=== PATIENT | female | born 1940 | race Caucasian/White ===

== ENCOUNTER 2018-02-23 05:56 | Inpatient (IN) | payer OTHER ==
[2018-02-13 15:32] VITALS: BMI 22.4
[2018-02-23] MEDS ORDERED: CEFAZOLIN 2 GM/D5W 2 GM/50 ML ML IVPB ONE (06:14)
[2018-02-23] MEDS ORDERED: ROPIVICAINE 0.2%/MORPH PF/KETOROLAC - 51ML DISP.SYRINGE IA ONE ×2 (06:14→08:02)
[2018-02-23] MEDS ORDERED: TRANEXAMIC ACID 1000 MG/10 ML VIAL IVPUSH ONE (06:14)
[2018-02-23] MEDS ORDERED: PANTOPRAZOLE 40 MG TABLET (FP) ONE (06:30)
[2018-02-23] MEDS ORDERED: GABAPENTIN 300 MG CAPSULE (FP) ONE (06:31)
[2018-02-23] MEDS ORDERED: oxyCODONE HCL 10 MG SUSTAINED ACTING TABLET ONE (06:31)
[2018-02-23] MEDS: GABAPENTIN 300 MG CAPSULE (FP) PO ONE ×2 (07:10→13:25)
[2018-02-23] MEDS: oxyCODONE HCL 10 MG SUSTAINED ACTING TABLET PO ONE ×2 (07:10→13:26)
[2018-02-23] MEDS: PANTOPRAZOLE 40 MG TABLET (FP) PO ONE ×2 (07:10→13:26)
--- NOTE | 2018-02-23 07:14 | HP ---
Admitting History and Physical - Admission Chief Complaint: left hip osteoarthritis x years History of Present Illness: 77-year-old female presenting in regard to her left hip. Long-standing history of left hip osteoarthritis. Patient complains of pain, limited range of motion, difficulty ambulating, and difficulty with activities of daily living. Patient has failed conservative treatment measures including PO medications, activity modification, injections, and exercise programs. At this point, patient would like to proceed with surgical intervention-left total hip arthroplasty MAKOplasty. History Source: Patient - Past Medical History Cardiovascular: Yes: HTN Psych: Yes: Depression Musculoskeletal: Yes: Osteoarthritis ENT: Yes: Allergic Rhinitis - Past Surgical History Additional Past Surgical History: See written history & physical. - Advance Directives Advance Directives: Yes: Health Care Proxy - Smoking History Smoking history: Former smoker Have you smoked in the past 12 months: No If you are a former smoker, when did you quit?: 30 YEARS AGO - Alcohol/Substance Use Hx Alcohol Use: Yes (FEW TIMES PER WEEK) Home Medications - Allergies Allergies/Adverse Reactions: Allergies Allergy/AdvReac Type Severity Reaction Status Date / Time copper Allergy Severe Rash Verified 02/13/18 15:13 phenytoin [From Dilantin] Allergy Severe Hives Verified 02/13/18 15:13 Sulfa (Sulfonamide Allergy Severe Hives Verified 02/13/18 15:13 Antibiotics) BASE METALS AdvReac Severe Rash Uncoded 02/13/18 15:13 - Home Medications Home Medications: Ambulatory Orders Ca/D3/Mag Ox/Zinc/Histology Specialist/Emil/Bor [Calcium 600+D3 Plus Caplet] 1 each PO DAILY 12/22 Cyclosporine [Restasis] 1 each OU BID 02/13/18 Enalapril Maleate 5 mg PO BID 02/13/18 Fluoxetine HCl [Prozac] 40 mg PO DAILY 02/13/18 Fluticasone Prop 0.05% Nasal [Flonase -] 1 - 2 spray NS BID 02/13/18 L.acidoph,Paracasei, B.lactis [Probiotic] 1 each PO DAILY 02/13/18 Meloxicam 15 mg PO DAILY 02/13/18 Pantothenic Acid (Vit B5) [Pantothenic Acid] 500 mg PO DAILY 02/13/18 Polyethylene Glycol 3350 [Miralax (For Daily Use) -] 17 gm PO HS 02/13/18 Simvastatin 40 mg PO HS 02/13/18 Valacyclovir HCl [Valtrex] 500 mg PO BID PRN 02/13/18 Review of Systems - Review of Systems Musculoskeletal: reports: Decreased ROM (left hip), Joint Pain (left hip) Physical Examination Vital Signs: Vital Signs Temperature 97.6 F 02/23/18 07:00 Pulse Rate 59 L 02/23/18 07:00 Respiratory Rate 16 02/23/18 07:00 Blood Pressure 129/78 02/23/18 07:00 O2 Sat by Pulse Oximetry (%) Constitutional: Yes: Well Nourished, No Distress Eyes: Yes: Conjunctiva Clear HENT: Yes: Atraumatic, Normocephalic Neck: Yes: Supple Cardiovascular: Yes: Regular Rate and Rhythm Respiratory: Yes: Regular Gastrointestinal: Yes: Soft ...Rectal Exam: Yes: Deferred Musculoskeletal: Yes: Joint Stiffness (left hip), Joint Swelling (left hip) Assessment/Plan 77-year-old female presenting in regard to her left hip. Long-standing history of left hip osteoarthritis. Patient complains of pain, limited range of motion, difficulty ambulating, and difficulty with activities of daily living. Patient has failed conservative treatment measures including PO medications, activity modification, injections, and exercise programs. At this point, patient would like to proceed with surgical intervention-left total hip arthroplasty MAKOplasty. Pros, cons, wrists, that if it is, and alternatives of a left total hip arthroplasty he were discussed with the patient at length. Patient confirms your understanding, and can sense your proceed with a left total hip arthroplasty MAKLplasty.
[2018-02-23] MEDS ORDERED: ceFAZolin SODIUM 1 GM VIAL ONE ×2 (07:22→08:14)
[2018-02-23] MEDS ORDERED: MIDAZOLAM HCL 2 MG/2 ML SINGLE DOSE VIAL ONE ×2 (07:22)
[2018-02-23] MEDS ORDERED: TRANEXAMIC ACID 1000 MG/10 ML VIAL ONE (07:22)
[2018-02-23] MEDS ORDERED: DEXAMETHASONE SOD PHOSPHATE 4 MG/1 ML VIAL ONE (07:22)
[2018-02-23] MEDS ORDERED: BUPIVACAINE HCL/PF 0.5% (5MG/ML) 10 ML VIAL ONE (07:29)
[2018-02-23] MEDS ORDERED: LIDOCAINE 1% P/F 10 MG/ML VIAL ONE (07:32)
[2018-02-23] MEDS ORDERED: DEXAMETHASONE SOD PHOSPHATE/PF 10 MG/ML SDV ONE (07:45)
[2018-02-23] MEDS ORDERED: PROPOFOL 20 ML ONE (08:35)
[2018-02-23] MEDS ORDERED: ONDANSETRON 4 MG/2 ML VIAL ONE (08:45)
[2018-02-23] MEDS ORDERED: ePHEDrine SULFATE 50 MG/1 ML AMPULE ONE (09:02)
[2018-02-23] MEDS ORDERED: ONDANSETRON 4 MG/2 ML VIAL IVPUSH PRN ×2 (10:25→11:27)
[2018-02-23] MEDS ORDERED: oxyCODONE HCL 5 MG TABLET PO PRN ×3 (10:25)
[2018-02-23] MEDS ORDERED: ACETAMINOPHEN 1000 MG/100 ML VIAL (NON FORMULARY) IVPB ONE ×2 (11:22→11:45)
[2018-02-23] MEDS ORDERED: valACYclovir HCL 500 MG TABLET (FP) PO PRN (11:23)
[2018-02-23] MEDS ORDERED: MAG HYDROX/AL HYDROX/SIMETH 30 ML UNIT-DOSE CUP PO PRN (11:27)
[2018-02-23] MEDS ORDERED: MAGNESIUM HYDROX 2400MG/30ML ORAL SUSPENSION 30 ML CUP PO PRN (11:27)
[2018-02-23] MEDS ORDERED: LACTATED RINGERS SOLUTION 1,000 ML IV SCH (11:30)
--- NOTE | 2018-02-23 11:34 | OP ---
Operative Note - Note: Operative Date: 02/23/18 Pre-Operative Diagnosis: Left hip OA Operation: Left ESTEPHANIA NATTY Post-Operative Diagnosis: Same as Pre-op Surgeon: Parker Cabral Palliative Care Specialist: Jody Johns Anesthesia: Spinal Estimated Blood Loss (mls): 200
[2018-02-23] MEDS ORDERED: KETOROLAC TROMETHAMINE 15 MG/ML VIAL IVPUSH ONE (11:40)
[2018-02-23] MEDS ORDERED: traMADol HCL 50 MG TABLET PO ONE (12:00)
--- NOTE | 2018-02-23 12:15 | SPEC ---
DATE OF OPERATION: 02/23/2018 PREOPERATIVE DIAGNOSIS: Left hip osteoarthritis. POSTOPERATIVE DIAGNOSIS: Left hip osteoarthritis. PROCEDURE: Left total hip replacement with MAKOplasty robotic navigation. ATTENDING: Parker Cabral MD CUSTOMER SUPPORT EXECUTIVE: KINGA Mcdowell ANESTHESIA: Spinal plus sedation. ESTIMATED BLOOD LOSS: 200 mL. COMPLICATIONS: None. DISPOSITION: The patient was transferred to the PACU in stable condition. IMPLANTS USED: [place] Fontaine Accolade II size 7 femoral component, Abby Tritanium 56-mm acetabular component with 30- and 25-mm acetabular screws, MDM bipolar head ball and liner. INDICATIONS: This is a 77-year-old female who presented to the office complaining of severe left hip pain. She was seen and examined by Dr. Cabral and diagnosed with severe left hip osteoarthritis. The patient was initially managed nonoperatively with injections, medications and physical therapy but continued to have severe pain and ambulatory dysfunction. She was therefore indicated for a left total hip replacement. The risks, benefits and alternatives to the procedure were explained to the patient in great detail and she elected to proceed with surgery. On the day of surgery the patient was taken to the operating room and placed on the OR table. Spinal anesthesia was administered by the anesthesiologist. The patient was then positioned in the lateral decubitus position on the table and all bony prominences were padded. An axillary roll was placed. The operative hip was then prepped and draped in the usual sterile fashion and intravenous antibiotics were given for infection prophylaxis. A surgical timeout was then performed with the team, and the patients identity, procedure, side, availability of implants, and the administration of antibiotics were confirmed. An approximately 15-cm longitudinal incision was made through the skin centered on the greater trochanter of the hip. This dissection was carried down through the subcutaneous tissues to the deep fascia. This fascia was then incised and a Cobra was placed around the inferior femoral neck. Electrocautery was used to reflect the anterior 40% of the gluteus medius and minimus starting at the musculotendinous junction and leaving a cuff for closure. This was reflected to reveal the capsule of the hip joint. An anterior capsulectomy was performed and the femoral head and neck were visualized. Grade 4 changes were noted diffusely throughout the joint. At this point, 3 small stab incisions were made superior to the main incision along the iliac crest. Three self-drilling Steinmann pins were then placed and the ESTEPHANIA pelvic array was attached. Reference points on the limb were then entered into the robotic device and the limb length deficiency, offset, and femoral neck resection level were then calculated by the software. The hip was then dislocated with traction and external rotation. An oscillating saw was used to make the femoral neck cut at the level previously templated, and the femoral head was removed. Attention was then turned to the acetabulum. Retractors were then placed around the acetabulum and the labrum was removed. An acetabular checkpoint pin and the [employer] software were used to register the contours of the acetabulum. The acetabulum was then reamed in a single stage to the preoperatively templated size using the [employer] robotic arm. The appropriately sized cup was then impacted and had solid fixation as well as the preset inclination and version of 40 and 20 degrees, respectively. A polyethylene liner was then placed in the cup. Attention was then turned back to the femur, which was externally rotated for improved visualization. A femoral neck elevator was used to present the femoral neck cut, a box osteotome was used to enter the femoral canal, and a canal finder was used to go down the femoral shaft. The ESTEPHANIA broaches were used sequentially until the optimal scratch fit was achieved. This correlated with the preoperatively templated size. From here, several different offset head and neck configurations were tested until excellent stability and length were obtained. These measurements were quantified using the [employer] software. All trial components were then removed, the femur was copiously irrigated, and the final components were placed. Leg length and stability were checked again and found to be excellent. Irrigation was performed again. Wound closure was started by repairing the abductor muscles with a No. 2 FiberWire stitch in a Krackow configuration passed through bone tunnels in the greater trochanter and tied over a bony bridge. This repair was then reinforced with a 0 V-Loc 180 barbed suture. Next, no. 1 Polysorb and 0 V-Loc 180 were used to close the fascia. The deep subcutaneous tissue was closed with No. 1 Polysorb sutures, and 2-0 Polysorb was used for the superficial subcutaneous tissue. The skin was closed using both 3-0 V-Loc 90 suture in a running subcuticular fashion and SwiftSet skin adhesive. The ESTEPHANIA array and pins were removed from the iliac crest and the stab incision sites were irrigated and closed with 4-0 Polysorb sutures and SwiftSet skin adhesive. Once this was completed, a sterile dressing was applied. The patient was then awakened and taken to the PACU in stable condition. ADDENDUM: After final implants were placed a 3-minute dilute Betadine lavage was performed. Following this the wound was again thoroughly irrigated with normal saline via pulsatile lavage and wound closure was begun. Anita [id number]
[2018-02-23] MEDS: KETOROLAC TROMETHAMINE 30 MG/1 ML VIAL IVPUSH SCH ×3 (13:27→23:44)
[2018-02-23] MEDS: traMADol HCL 50 MG TABLET PO SCH ×3 (13:27→23:43)
[2018-02-23] MEDS: LACTATED RINGERS SOLUTION 1,000 ML IV SCH (13:27)
[2018-02-23] MEDS: oxyCODONE HCL 5 MG TABLET PO PRN (16:41)
[2018-02-23] MEDS: ACETAMINOPHEN 325 MG TABLET (FP) PO SCH ×2 (17:43→23:43)
[2018-02-23] MEDS: CEFAZOLIN 2 GM/D5W 2 GM/50 ML ML IVPB SCH (17:43)
[2018-02-23] MEDS ORDERED: DEXAMETHASONE SOD PHOSPHATE 10 MG/1 ML VIAL IVPB ONE (20:00)
[2018-02-23] MEDS ORDERED: PT OWN MED DRAWER 7, Y5N ONE (21:10)
[2018-02-23] MEDS: ATORVASTATIN CA 20 MG TABLET (FP) PO SCH (21:13)
[2018-02-23] MEDS: FLUTICASONE PROP 0.05% 16 GM NASAL SPRAY NS SCH (21:13)
[2018-02-23] MEDS: ENALAPRIL MALEATE 5 MG TABLET (FP) PO SCH (21:13)
[2018-02-23] MEDS: SENNOSIDES/DOCUSATE COMBO (SENNA PLUS) TABLET (UD) PO SCH (21:13)
[2018-02-23] MEDS: ASCORBIC ACID 500 MG TABLET (FP) PO SCH (21:13)
[2018-02-23] MEDS: GABAPENTIN 300 MG CAPSULE (FP) PO SCH (21:14)
[2018-02-23] MEDS: oxyCODONE HCL 10 MG SUSTAINED ACTING TABLET PO SCH (21:14)
[2018-02-23] MEDS: POLYETHYLENE GLYCOL 3350 119 GM BTL PO SCH (21:14)
[2018-02-23] MEDS ORDERED: PATIENT'S OWN MEDICATION (NON-FORMULARY) (Cyclosporine [Restasis] 1 EACH) OU SCH (22:00)
[2018-02-24] MEDS: CEFAZOLIN 2 GM/D5W 2 GM/50 ML ML IVPB SCH (02:12)
[2018-02-24] MEDS: oxyCODONE HCL 5 MG TABLET PO PRN (02:12)
[2018-02-24] MEDS: ACETAMINOPHEN 325 MG TABLET (FP) PO SCH ×4 (06:24→23:51)
[2018-02-24] MEDS: KETOROLAC TROMETHAMINE 30 MG/1 ML VIAL IVPUSH SCH (06:25)
[2018-02-24] MEDS: traMADol HCL 50 MG TABLET PO SCH ×4 (06:25→23:52)
[2018-02-24] MEDS: ASPIRIN 325 MG TABLET PO SCH (08:00)
[2018-02-24 08:28] LABS: HEMATOCRIT 33.5 % (32.4-45.2); HEMOGLOBIN 10.5 GM/dl (10.7-15.3); MCHC 31.5 g/dl (32.0-36.0); MEAN CELL VOLUME 95.3 fl (80-96); MEAN PLT VOLUME 8.6 fl (7.5-11.1); PLATELET COUNT 210 K/MM3 (134-434); RBC 3.51 M/mm3 (3.60-5.2); RDW 12.5 % (11.6-15.6); WHITE BLOOD COUNT 11.8 K/mm3 (4.0-10.8)
[2018-02-24 08:36] LABS: ANION GAP 6 MMOL/L (8-16); BLOOD UREA NITROGEN 18 mg/dl (7-18); CALCIUM 8.6 mg/dl (8.4-10.2); CHLORIDE 103 mmol/L (98-107); CO2 27 mmol/L (22-28); CREATININE 0.7 mg/dl (0.6-1.3); GLUCOSE,RANDOM 149 mg/dl (74-106); POTASSIUM 4.3 mmol/L (3.5-5.1); SODIUM 136 mmol/L (136-145)
[2018-02-24] MEDS: MULTIVITAMINS (DAILY MVI) TABLET (FP) PO SCH (10:16)
[2018-02-24] MEDS: GABAPENTIN 300 MG CAPSULE (FP) PO SCH ×2 (10:17→21:40)
[2018-02-24] MEDS: SENNOSIDES/DOCUSATE COMBO (SENNA PLUS) TABLET (UD) PO SCH ×2 (10:18→23:52)
[2018-02-24] MEDS: ASCORBIC ACID 500 MG TABLET (FP) PO SCH ×2 (10:18→21:40)
[2018-02-24] MEDS: ENALAPRIL MALEATE 5 MG TABLET (FP) PO SCH ×2 (10:19→21:40)
[2018-02-24] MEDS: oxyCODONE HCL 10 MG SUSTAINED ACTING TABLET PO SCH ×2 (10:19→22:00)
[2018-02-24] MEDS: FLUoxetine HCL 20 MG CAPSULE (FP) PO SCH (10:19)
[2018-02-24] MEDS: PANTOPRAZOLE 40 MG TABLET (FP) PO SCH (10:19)
[2018-02-24] MEDS: FLUTICASONE PROP 0.05% 16 GM NASAL SPRAY NS SCH ×2 (10:20→21:39)
[2018-02-24] MEDS: LACTATED RINGERS SOLUTION 1,000 ML IV SCH (11:56)
--- NOTE | 2018-02-24 19:55 | PN ---
Progress Note (short form) - Note Progress Note: Pt seen and examined. Doing well. AVSS Selected Entries 02/24/18 18:00 Temperature 97.9 F Pulse Rate 67 Respiratory 17 Rate Blood Pressure 139/69 O2 Sat by Pulse 97 Oximetry (%) Oxygen Delivery Room Air Method Laboratory Tests 02/24/18 02/24/18 07:13 07:13 WBC 11.8 H Hgb 10.5 L Hct 33.5 Plt Count 210 Sodium 136 Potassium 4.3 Chloride 103 Carbon Dioxide 27 Anion Gap 6 L BUN 18 Creatinine 0.7 Creat Clearance w eGFR > 60 Random Glucose 149 H Calcium 8.6 Gen: NAD LLE: c/d/i, NVID A/P 77yo female POD#1 s/p L NATTY PT/OOB - WBAT LLE D/C home in AM after PT; f/u in office in 10-14 days.
--- NOTE | 2018-02-24 20:02 | DS ---
Physical Examination Vital Signs: Vital Signs Temperature 97.9 F 02/24/18 18:00 Pulse Rate 67 02/24/18 18:00 Respiratory Rate 17 02/24/18 18:00 Blood Pressure 139/69 02/24/18 18:00 O2 Sat by Pulse Oximetry (%) 97 02/24/18 18:00 Labs: CBC, BMP 02/24/18 07:13 02/24/18 07:13 Discharge Summary Reason For Visit: LEFT HIP OSTEOARTHRITIS Current Active Problems Osteoarthritis of left hip (Acute) Procedures: Principal: Left ESTEPHANIA NATTY Hospital Course: Admitted for elective surgery. Procedure performed without complications. Pt received postoperative antibiotic prophylaxis and DVT ppx. Ambulated with physical therapy. Stable for discharge home with outpatient followup. Condition: Stable - Instructions Diet, Activity, Other Instructions: Dr Cabral - Hip Replacement Instructions Keep the Aquacel dressing on until removed by Dr. Cabral in 10-14 days - it is antibacterial and waterproof and you can shower with it on. Call the office for a follow-up appointment with Dr. Cabral in 10-14 days. Take one Aspirin 325mg daily for 6 weeks to prevent blood clots in your legs. Take one Pantoprazole 40mg daily for 6 weeks to protect against heartburn and ulcers. Take Cephalexin (antibiotic) 3x/day for 10 days to help prevent skin infection. Resume taking Meloxicam 15mg daily to reduce swelling and inflammation. Take a multivitamin, stool softener and extra Vitamin C supplement daily. For pain: *Mild pain (1-3/10): Take 1 Tramadol tablet every 4 hours as needed. Moderate pain (4-6/10): Take 1 Tramadol tablet and 1 Percocet tablet every 4 hours as needed. Severe pain (7-10/10): Take 1 Tramadol tablet and 2 Percocet tablets every 4 hours as needed. Activity: You can put as much weight on the operative leg as you want. For the first 6 weeks, all you need to do is walk around the house, go up/down stairs, and sit down/get up. After 6 weeks when everything is healed (and bone has grown into the implant) you will be sent for more intensive outpatient physical therapy. Always use a walker or cane for balance and to prevent falls. Expect to see swelling / bruising from the operative site all the way down to your toes. Wear the Compression stocking on the operative side during the day to minimize how much swelling there is in your foot/ankle. Don't wear the stocking at night. You don't have to wear the stocking on the other side. Disposition: VNS/HOME HEALTH CARE - Home Medications Comprehensive Discharge Medication List: Ambulatory Orders Ca/D3/Mag Ox/Zinc/Substation Electrician Supervisor/Emil/Bor [Calcium 600-D3 Plus Caplet] 1 each PO DAILY 12/22 Cyclosporine [Restasis] 1 each OU BID 02/13/18 Enalapril Maleate 5 mg PO BID 02/13/18 Fluoxetine HCl [Prozac] 40 mg PO DAILY 02/13/18 Fluticasone Prop 0.05% Nasal [Flonase -] 1 - 2 spray NS BID 02/13/18 L.acidoph,Paracasei, B.lactis [Probiotic] 1 each PO DAILY 02/13/18 Meloxicam 15 mg PO DAILY 02/13/18 Pantothenic Acid (Vit B5) [Pantothenic Acid] 500 mg PO DAILY 02/13/18 Polyethylene Glycol 3350 [Miralax 119 gm Btl -] 17 gm PO HS 02/13/18 Simvastatin 40 mg PO HS 02/13/18 Valacyclovir HCl [Valtrex] 500 mg PO BID PRN 02/13/18 Ascorbic Acid [Vitamin C -] 500 mg PO BID tablet 02/24/18 Aspirin [ASA -] 325 mg PO DAILY@0800 tablet 02/24/18 Cephalexin Monohydrate [Keflex -] 500 mg PO TID #30 capsule 02/24/18 Multivitamins [Multivit ([facility] Formulary)] 1 tab PO DAILY tab 02/24/18 Oxycodone HCl/Acetaminophen [Percocet 5-325 mg Tablet] 1 - 2 tab PO Q4H PRN #60 tablet MDD 10 02/24/18 Pantoprazole Sodium [Protonix -] 40 mg PO DAILY #40 tablet.ec 02/24/18 Sennosides/Docusate Sodium [Pericolace -] 2 tablet PO BID tablet 02/24/18 traMADol HCL [Ultram -] 50 mg PO Q4H PRN #42 tablet MDD 6 02/24/18
[2018-02-24] MEDS: ATORVASTATIN CA 20 MG TABLET (FP) PO SCH (21:40)
[2018-02-24] MEDS: POLYETHYLENE GLYCOL 3350 119 GM BTL PO SCH (21:40)
[2018-02-25] MEDS: ACETAMINOPHEN 325 MG TABLET (FP) PO SCH (06:01)
[2018-02-25] MEDS: traMADol HCL 50 MG TABLET PO SCH (06:01)
[2018-02-25 06:34] VITALS: BP 138/65; PULSE 68; TEMP 97.8
[2018-02-25 08:18] LABS: HEMATOCRIT 30.9 % (32.4-45.2); HEMOGLOBIN 9.9 GM/dl (10.7-15.3); MCH 30.4 pg (25.7-33.7); MEAN CELL VOLUME 95.2 fl (80-96); MEAN PLT VOLUME 8.6 fl (7.5-11.1); PLATELET COUNT 180 K/MM3 (134-434); RBC 3.24 M/mm3 (3.60-5.2); RDW 12.2 % (11.6-15.6); WHITE BLOOD COUNT 8.2 K/mm3 (4.0-10.8)
[2018-02-25] MEDS: ASPIRIN 325 MG TABLET PO SCH (08:28)
[2018-02-25] MEDS: oxyCODONE HCL 10 MG SUSTAINED ACTING TABLET PO SCH (09:28)
[2018-02-25] MEDS: MULTIVITAMINS (DAILY MVI) TABLET (FP) PO SCH (09:29)
[2018-02-25] MEDS: ENALAPRIL MALEATE 5 MG TABLET (FP) PO SCH (09:29)
[2018-02-25] MEDS: FLUoxetine HCL 20 MG CAPSULE (FP) PO SCH (09:29)
[2018-02-25] MEDS: SENNOSIDES/DOCUSATE COMBO (SENNA PLUS) TABLET (UD) PO SCH (09:29)
[2018-02-25] MEDS: ASCORBIC ACID 500 MG TABLET (FP) PO SCH (09:29)
[2018-02-25] MEDS: FLUTICASONE PROP 0.05% 16 GM NASAL SPRAY NS SCH (09:30)
[2018-02-25] MEDS: GABAPENTIN 300 MG CAPSULE (FP) PO SCH (09:30)
[2018-02-25] MEDS: PANTOPRAZOLE 40 MG TABLET (FP) PO SCH (09:30)
--- NOTE | 2018-02-27 18:42 | PATH ---
Surgical Pathology Report Patient Name: ROBERTO VILLALPANDO Med. Rec. #: [id number] /Age/Gender: 1940 (Age: 77) / F Account: [id number] Location: [facility] MED-SURG Taken: 02/23/2018 Received: 02/23/2018 Reported: 02/27/2018 Physicians: Parker Cabral M.D. Specimen(s) Received LEFT FEMORAL HEAD Clinical History Left hip osteoarthritis Final Diagnosis LEFT FEMORAL HEAD, RESECTION: DEGENERATIVE JOINT DISEASE, LEFT HIP. Electronically Signed Chencho Muir M.D. Gross Description Received in formalin, labeled "left femoral head," is a 5.0 x 5.0 x 4.3 cm. femoral head with a 1.2 cm in length portion of femoral neck attached. The margin of resection is smooth. There is a 3.5 cm in greatest dimension area of eburnation present. The remaining articular surface is gray-yellow and diffusely granular. The underlying trabecular bone is yellow and hard. A representative phlebotomy services section is submitted in one cassette, following decalcification. 02/24/2018 [facility]02/24/2018
== END 2018-02-25 11:00 | disposition home health service (06) | DRG 470 ==
LOC: FM/S 05:56
PROVIDERS: ADMIT Student in an Organized Health Care Education/Training Program; ATTEND Student in an Organized Health Care Education/Training Program
PROC: 8E0Y0CZ Robotic Assisted Procedure of Lower Extremity, Open Approach (ICD-10-PCS; 2018-02-23)
PROC: 0SRB0JZ Replacement of Left Hip Joint with Synthetic Substitute, Open Approach (ICD-10-PCS; principal; 2018-02-23 08:59)
DX: M16.12 Unilateral primary osteoarthritis, left hip (principal); I10 Essential (primary) hypertension; Z87.891 Personal history of nicotine dependence
CPT/HCPCS: 36415; 73523-TC-FY; 80048; 85027; 88304-TC; 88311-TC; 94760; 97116-GP; 97161-GP; J0131; J1100

== ENCOUNTER 2019-10-28 08:55 | Emergency (ER) | payer OTHER ==
[2019-10-28 09:31] VITALS: BP 144/77; PULSE 65; TEMP 97.8; BMI 23.5
--- NOTE | 2019-10-28 09:36 | PDOC ---
History of Present Illness - General Chief Complaint: Psychiatric Stated Complaint: ANXIETY Time Seen by Provider: 10/28/19 09:03 - History of Present Illness Initial Comments: 10/28/19 09:32 79 F with h/o HTN, spinal stenosis, presenting to ED with SOB. Pt states that she has chronic neck pain that is easily exacerbated. She was working in her yard this morning straining her neck when she suddenly felt her pain flare up. This caused her to become very anxious, and she states that she started feeling short of breath. Pt denies ever having chest pain. Denies any leg swelling or orthopnea. No recent travel/immobilization. No history of DVT/PE. Upon arrival to ED, pt states she was able to control her breathing and slow it down. Now feels significantly better. Denies any SOB at this time. States that she still feels a little anxious but will try to calm herself. Still complaining of neck pain but states that this is chronic. Denies any numbness/tingling in any sensation. Past History - Medical History Allergies/Adverse Reactions: Allergies Allergy/AdvReac Type Severity Reaction Status Date / Time copper Allergy Severe Rash Verified 02/13/18 15:13 phenytoin [From Dilantin] Allergy Severe Hives Verified 02/13/18 15:13 Sulfa (Sulfonamide Allergy Severe Hives Verified 02/13/18 15:13 Antibiotics) BASE METALS AdvReac Severe Rash Uncoded 02/13/18 15:13 Home Medications: Ambulatory Orders Ca/D3/Mag Ox/Zinc/Sound Engineering Technician/Emil/Bor [Calcium 600-D3 Plus Caplet] 1 each PO DAILY 02/13/18 Fluoxetine HCl [Prozac] 40 mg PO DAILY 02/13/18 Pantothenic Acid (Vit B5) [Pantothenic Acid] 500 mg PO DAILY 02/13/18 Simvastatin 40 mg PO HS 02/13/18 Ascorbic Acid [Vitamin C -] 500 mg PO BID tablet 02/24/18 Aspirin [ASA -] 325 mg PO DAILY@0800 tablet 02/24/18 Multivitamins [Multivit ([facility] Formulary)] 1 tab PO DAILY tab 02/24/18 Pantoprazole Sodium [Protonix -] 40 mg PO DAILY #40 tablet.ec 02/24/18 Sennosides/Docusate Sodium [Pericolace -] 2 tablet PO BID tablet 02/24/18 Lisinopril 1 tab PO ASDIR 10/28/19 Anemia: No Asthma: No Cancer: No Cardiac Disorders: Yes (MITRAL VALVE PROLAPSE) CVA: No COPD: No CHF: No Dementia: No Diabetes: No GI Disorders: No Disorders: No HTN: Yes Hypercholesterolemia: Yes Liver Disease: No Seizures: No Thyroid Disease: No Other medical history: ANXIETY - Surgical History Abdominal Surgery: Yes (UMBILICAL AND HERNIA REPAIRS IN THE PAST) Appendectomy: No Cardiac Surgery: No Cholecystectomy: No Lung Surgery: No Neurologic Surgery: No Orthopedic Surgery: (HAMMER TOE REPAIR) - Reproductive History Is Patient Now?: No - Psycho-Social/Smoking History Smoking History: Former smoker Have you smoked in the past 12 months: No If you are a former smoker, when did you quit?: 30 YEARS AGO Information on smoking cessation initiated: No - Substance Abuse Hx (Audit-C & DAST Scrn) How often the patient has a drink containing alcohol: Never Score: In Men: 4 or > Positive; In Women: 3 or > Positive: 0 Screen Result (Pos requires Nsg. Audit-10AR): Negative In the last yr the pt used illegal drug/Rx for NonMed reason: No Score: Yes response is considered Positive: 0 Screen Result (Positive result requires Nsg. DAST-10): Negative Review of Systems - Review of Systems Comments:: 10/28/19 09:35 "GENERAL/CONSTITUTIONAL: No fever or chills. No weakness. HEAD, EYES, EARS, NOSE AND THROAT: No change in vision. No ear pain or discharge. No sore throat. CARDIOVASCULAR: No chest pain, no loss of consciousness RESPIRATORY: +SOB, No cough, wheezing, or hemoptysis. GASTROINTESTINAL: No nausea, vomiting, diarrhea or constipation. GENITOURINARY: No dysuria, frequency, or change in urination. MUSCULOSKELETAL: No joint or muscle swelling or pain. No neck or back pain. SKIN: No rash NEUROLOGIC: No vertigo, no change in strength/sensation. ENDOCRINE: No increased thirst. No abnormal weight change. HEMATOLOGIC/LYMPHATIC: No anemia, easy bleeding, or history of blood clots. ALLERGIC/IMMUNOLOGIC: No hives or skin allergy. *Physical Exam - Vital Signs Last Vital Signs Temp Pulse Resp BP Pulse Ox 97.8 F 65 22 H 144/77 100 10/28/19 08:55 08/23/20 08:55 10/28/19 08:55 10/28/19 08:55 10/28/19 08:55 - Physical Exam 10/28/19 09:35 "GENERAL: Awake, alert, and fully oriented, in no acute distress. HEAD: No signs of trauma EYES: PERRLA, EOMI, sclera anicteric, conjunctiva clear ENT: Auricles normal inspection, hearing grossly normal, nares patent, oroph arynx clear without exudates. Moist mucosa NECK: Nontender, no stepoffs, Normal ROM, supple, no lymphadenopathy, JVD, or masses LUNGS: Breath sounds equal, clear to auscultation bilaterally. No wheezes, and no crackles HEART: Regular rate and rhythm, normal S1 and S2, no murmurs, rubs or gallops ABDOMEN: Soft, nontender, normoactive bowel sounds. No guarding, no rebound. No masses EXTREMITIES: Normal range of motion, no edema. No clubbing or cyanosis. No cords, erythema, or tenderness NEUROLOGICAL: Cranial nerves II through XII intact. 5/5 strength and sensation in all extremities, Normal speech, normal gait, normal cerebellar function SKIN: Warm, Dry, normal turgor, no rashes or lesions noted. Heart Score/ECG Review - History History: Slightly suspicious - Electrocardiogram EKG: Normal - Age Age: >/= 65 - Risk Factors Risk Factors Heart Score: Yes Hx Hypertension Based on the list above the patient has:: 1-2 risk factors - Troponin Troponin: </= normal limit - Score Heart Score - Total: 3 ED Treatment Course - LABORATORY CBC & Chemistry Diagram: 10/28/19 09:45 10/28/19 09:45 - RADIOLOGY Radiology Studies Ordered: Category Date Time Status CHEST PA & LAT [RAD] Stat Radiology 10/28/19 09:32 Ordered Medical Decision Making - Medical Decision Making 10/28/19 09:36 79 F with SOB, now resolved. Suspect anxiety/panic attack. Pt with nonischemic EKG. Normal O2 sat, no clinical signs of DVT. - Labs, trop - CXR - Reassess 10/28/19 10:44 Labs wnl, trop negative CXR clear Pt reassessed - states she feels completely back to baseline now. Denies SOB. Denies CP. Pt is well appearing, with normal vitals. Clinically stable for DC at this time. I discussed the physical exam findings, ancillary test results and final di agnoses with the patient. I answered all of the patient's questions. The patient was satisfied with the care received and felt comfortable with the discharge plan and treatment plan. The patient agrees to follow up with the primary care physician within 24-72 hours. Discharge - Discharge Information Problems reviewed: Yes Clinical Impression/Diagnosis: Palpitations, Shortness of breath, Panic attack Disposition: HOME - Follow up/Referral - Patient Discharge Instructions Patient Printed Discharge Instructions: DI for Shortness of Breath Additional Instructions: Even though your bloodwork, Chest X ray, and EKG today were normal, this does not rule out all serious medical conditions. You must follow up with your primary doctor within 48 week for re-evaluation. You should also arrange a follow up appointment with a service operations manager for further testing. If at any point you experience recurrent shortness of breath, chest pain, palpitations, or any other concerning symptoms, return to the ER immediately. - Post Discharge Activity Work/Back to School Note: My Personal Safety Plan
[2019-10-28 10:03] LABS: BASO % 1.2 % (0-2.0); EOS % 0.6 % (0-4.5); HEMATOCRIT 43.7 % (32.4-45.2); HEMOGLOBIN 14.3 GM/dl (10.7-15.3); LYMPH % 16.7 % (8-40); MCH 31.9 pg (25.7-33.7); MCHC 32.7 g/dl (32.0-36.0); MEAN CELL VOLUME 97.6 fl (80-96); MEAN PLT VOLUME 7.6 fl (7.5-11.1); MONO % 11.4 % (3.8-10.2); NEUT % 70.1 % (42.8-82.8); PLATELET COUNT 279 K/MM3 (134-434); RBC 4.48 M/mm3 (3.60-5.2); RDW 12.6 % (11.6-15.6)
[2019-10-28 10:06] LABS: ALBUMIN 3.7 g/dl (3.4-5.0); BILIRUBIN,TOTAL 0.9 mg/dl (0.2-1); CALCIUM 9.5 mg/dl (8.5-10); CREATININE 0.8 mg/dl (0.55-1.3); POTASSIUM 3.5 mmol/L (3.5-5.1); TOT PROT 6.7 g/dl (6.4-8.2)
[2019-10-28 11:02] LABS: N-TERMINAL BNP 575.9 pg/ml (5-450)
--- NOTE | 2019-10-29 18:28 | EKG ---
Test Reason : Blood Pressure : / mmHG Vent. Rate : 060 BPM Atrial Rate : 060 BPM P-R Int : 172 ms QRS Dur : 096 ms QT Int : 450 ms P-R-T Axes : 060 017 049 degrees QTc Int : 450 ms NORMAL SINUS RHYTHM NORMAL ECG NO PREVIOUS ECGS AVAILABLE Confirmed by KIRK MAYORGA MD ([id number]) on 10/29/2019 6:28:48 PM Referred By: Yossi VUONG Confirmed By:KIRK MAYORGA MD
== END 2019-10-28 11:21 | disposition home or self-care (01) ==
LOC: FER 08:55
DX: R00.2 Palpitations (principal); R06.02 Shortness of breath; F41.0 Panic disorder [episodic paroxysmal anxiety]
CPT/HCPCS: 36415; 71046-TC-FY; 80053; 82550; 83880; 84484; 85025; 93005; 99285-25

== ENCOUNTER 2023-05-22 10:55 | Observation (INO) | payer OTHER ==
[2023-05-22 12:17] LABS: HEMATOCRIT 39.6 % (32.4-45.2); HEMOGLOBIN 13.3 G/dL (10.7-15.3); MCH 32.2 pg (25.7-33.7); MCHC 33.7 g/dl (32.0-36.0); MEAN CELL VOLUME 95.6 fl (80-96); MEAN PLT VOLUME 7.5 fl (7.5-11.1); RBC 4.14 10^6/uL (3.60-5.2); RDW 13.7 % (11.6-15.6); WHITE BLOOD COUNT 8.5 10^3/uL (4.0-10.8)
[2023-05-22 12:22] LABS: INR 1.03 (0.83-1.09); PROTHROMBIN TIME (PATIENT) 11.9 SEC (9.7-13.0)
[2023-05-22 12:27] LABS: ALBUMIN 3.9 g/dl (3.4-5.0); BILIRUBIN,TOTAL 0.6 mg/dl (0.2-1); CALCIUM 9.5 mg/dl (8.5-10.1); CREATININE 0.8 mg/dl (0.6-1.3); POTASSIUM 3.8 mmol/L (3.5-5.1); TOT PROT 6.5 g/dl (6.4-8.2)
[2023-05-22 13:02] LABS: EPITHELIAL CELLS 0-5 /hpf
[2023-05-22 13:06] LABS: N-TERMINAL BNP 767.2 pg/ml (5-450)
[2023-05-22 17:28] VITALS: BMI 21.5
[2023-05-23] MEDS ORDERED: MELATONIN 5 MG TABLETS PO PRN (03:40)
[2023-05-23] MEDS: OXYBUTYNIN CHLORIDE 5 MG TABLET PO SCH (06:46)
[2023-05-23 09:03] LABS: CALCIUM 9.2 mg/dl (8.5-10.1); CREATININE 0.7 mg/dl (0.6-1.3); MAGNESIUM 2.1 mg/dL (1.8-2.4); PHOSPHOROUS 3.9 (2.5-4.9); POTASSIUM 4.4 mmol/L (3.5-5.1)
[2023-05-23] MEDS: ROSUVASTATIN CA 10 MG TABLET PO SCH (09:24)
[2023-05-23] MEDS: amLODIPine BESYLATE 5 MG TABLET (FP) PO SCH (09:25)
[2023-05-23] MEDS: ACETAMINOPHEN 325 MG TABLET (FP) PO PRN (09:25)
[2023-05-23] MEDS: FLUoxetine HCL 20 MG CAPSULE PO SCH (09:25)
[2023-05-23 10:15] LABS: BASO % 0.5 % (0-2.0); EOS % 3.3 % (0-4.5); HEMATOCRIT 38.8 % (32.4-45.2); HEMOGLOBIN 12.8 GM/dL (10.7-15.3); LYMPH % 18.2 % (8-40); MCH 31.4 pg (25.7-33.7); MEAN CELL VOLUME 95.3 fl (80-96); MEAN PLT VOLUME 7.4 fl (7.5-11.1); MONO % 12.4 % (3.8-10.2); NEUT % 65.6 % (42.8-82.8); PLATELET COUNT 306 10^3/uL (134-434); RBC 4.07 M/mm3 (3.60-5.2); RDW 13.5 % (11.6-15.6); WHITE BLOOD COUNT 6.3 K/mm3 (4.0-10.0)
[2023-05-23] MEDS: ASPIRIN COATED 81 MG TABLET.EC PO SCH (15:45)
[2023-05-23] MEDS: FUROSEMIDE 20 MG TABLET (FP) PO SCH (15:45)
[2023-05-24] MEDS ORDERED: SODIUM CHLORIDE 1,000 ML IV SCH (07:30)
[2023-05-24] MEDS ORDERED: REGADENOSON 0.4 MG/5 ML PRE-FILLED SYRINGE IVPUSH ONE (09:21)
[2023-05-24 09:25] LABS: ALBUMIN 3.7 g/dl (3.4-5.0); BILIRUBIN,TOTAL 0.6 mg/dl (0.2-1); CALCIUM 9.1 mg/dl (8.5-10.1); CREATININE 0.7 mg/dl (0.6-1.3); POTASSIUM 4.2 mmol/L (3.5-5.1); TOT PROT 6.2 g/dl (6.4-8.2)
[2023-05-24 09:55] LABS: BASO % 0.6 % (0-2.0); EOS % 2.7 % (0-4.5); HEMATOCRIT 37.3 % (32.4-45.2); HEMOGLOBIN 12.6 GM/dL (10.7-15.3); LYMPH % 14.9 % (8-40); MCH 31.8 pg (25.7-33.7); MCHC 33.9 g/dl (32.0-36.0); MEAN CELL VOLUME 93.8 fl (80-96); MEAN PLT VOLUME 7.3 fl (7.5-11.1); NEUT % 69.8 % (42.8-82.8); PLATELET COUNT 323 10^3/uL (134-434); RBC 3.98 M/mm3 (3.60-5.2); RDW 13.6 % (11.6-15.6); WHITE BLOOD COUNT 7.8 K/mm3 (4.0-10.0)
[2023-05-24] MEDS: REGADENOSON 0.4 MG/5 ML PRE-FILLED SYRINGE IVPUSH ONE (11:50)
[2023-05-24] MEDS: FUROSEMIDE 20 MG TABLET (FP) PO SCH (15:30)
[2023-05-24] MEDS: SODIUM CHLORIDE 1,000 ML IV SCH (20:45)
[2023-05-25 07:52] LABS: HEMATOCRIT 38.1 % (32.4-45.2); HEMOGLOBIN 12.4 G/dL (10.7-15.3); MCH 31.1 pg (25.7-33.7); MCHC 32.4 g/dl (32.0-36.0); MEAN CELL VOLUME 95.7 fl (80-96); MEAN PLT VOLUME 7.3 fl (7.5-11.1); PLATELET COUNT 302.3 10^3/uL (134-434); RBC 3.98 10^6/uL (3.60-5.2); RDW 13.5 % (11.6-15.6); WHITE BLOOD COUNT 8.8 10^3/uL (4.0-10.8)
[2023-05-25 08:25] LABS: CREATININE 0.8 mg/dl (0.6-1.3); MAGNESIUM 2.1 mg/dL (1.8-2.4); PHOSPHOROUS 3.8 (2.5-4.9); POTASSIUM 4.1 mmol/L (3.5-5.1)
[2023-05-25 10:26] VITALS: RESP 20; TEMP 98.3
[2023-05-25] MEDS: LISINOPRIL 5 MG TABLET PO SCH (11:09)
[2023-05-25] MEDS: DOCUSATE SODIUM 100 MG CAPSULE (FP) PO PRN (11:10)
[2023-05-25] MEDS: MECLIZINE HCL 12.5 MG TABLET PO PRN (11:10)
[2023-05-25] MEDS: ENOXAPARIN NA (PORCINE) 40 MG/0.4 ML DISP.SYRIN SQ SCH (11:10)
[2023-05-25 14:24] VITALS: BP 147/70; PULSE 71
== END 2023-05-25 16:35 | disposition home or self-care (01) ==
LOC: FER 10:55 → INTOOBSV 16:13 → FM/S 16:13
PROVIDERS: ADMIT Internal Medicine; ATTEND Internal Medicine
PROC: 3E023GC Introduction of Other Therapeutic Substance into Muscle, Percutaneous Approach (ICD-10-PCS; principal; 2023-05-22)
PROC: 3E033GC Introduction of Other Therapeutic Substance into Peripheral Vein, Percutaneous Approach (ICD-10-PCS; 2023-05-22)
PROC: 3E0337Z Introduction of Electrolytic and Water Balance Substance into Peripheral Vein, Percutaneous Approach (ICD-10-PCS; 2023-05-22)
DX: I95.1 Orthostatic hypotension (principal); R00.2 Palpitations; M16.12 Unilateral primary osteoarthritis, left hip; R06.02 Shortness of breath; I11.0 Hypertensive heart disease with heart failure; F41.0 Panic disorder [episodic paroxysmal anxiety]; I50.9 Heart failure, unspecified; F32.A Depression, unspecified; N39.9 Disorder of urinary system, unspecified; E78.5 Hyperlipidemia, unspecified; G93.89 Other specified disorders of brain; Z88.2 Allergy status to sulfonamides; Z88.8 Allergy status to other drugs, medicaments and biological substances; Z87.891 Personal history of nicotine dependence
CPT/HCPCS: 0241U-QW; 36415; 70450-TC; 71045-TC-FY; 71275-TC; 78452-TC; 80048; 80053; 80061; 81003; 81015; 83036; 83735; 83880; 84100; 84439; 84443; 84484; 85025; 85027; 85379; 85610; 87086; 87186; 93005; 93017; 93306-TC; 96361; 96372; 96374; 97116-GP; 97162-GP; 99285-25; A9502; G0378; J2785; Q9967